=== PATIENT | female | born 1980 | race Caucasian/White ===

== ENCOUNTER 2017-12-13 15:26 | Outpatient (CLI) | payer BC | END 2017-12-13 15:27 | disposition home or self-care (01) | LOC: BICMAMMO 15:26 | PROVIDERS: ATTEND Family Medicine | DX: Z12.31 Encounter for screening mammogram for malignant neoplasm of breast (principal); Z80.3 Family history of malignant neoplasm of breast | CPT/HCPCS: 77063; 77067 ==

== ENCOUNTER 2018-02-13 15:18 | Outpatient (CLI) | payer BC | END 2018-02-13 15:19 | disposition home or self-care (01) | LOC: BICMRI 15:18 | PROVIDERS: ATTEND Internal Medicine Rheumatology | DX: M75.82 Other shoulder lesions, left shoulder (principal); R93.7 Abnormal findings on diagnostic imaging of other parts of musculoskeletal system ==

== ENCOUNTER 2018-08-19 16:21 | Outpatient (CLI) | payer BC | END 2018-08-19 16:22 | disposition home or self-care (01) | LOC: CTENTCT 16:21 | PROVIDERS: ATTEND Otolaryngology Plastic Surgery within the Head & Neck | DX: J32.9 Chronic sinusitis, unspecified (principal) | CPT/HCPCS: 70486 ==

== ENCOUNTER 2018-10-15 14:57 | Outpatient (CLI) | payer BC ==
--- NOTE | 2018-10-15 15:21 | RAD ---
EXAM: Two views chest PROVIDED CLINICAL HISTORY: Fever. Respiratory infection for 2 weeks. COMPARISON: 01/03/2016 FINDINGS: Cardiac silhouette and pulmonary vasculature are within normal limits. The lungs are clear. There is mild elevation of the right hemidiaphragm. Chest is stable from prior exam. IMPRESSION: No acute cardiopulmonary process.
== END 2018-10-15 14:58 | disposition home or self-care (01) ==
LOC: BICRAD 14:57
PROVIDERS: ATTEND Family Medicine
DX: R50.9 Fever, unspecified (principal)
CPT/HCPCS: 36415; 71046; 80048; 81001; 85025; 86140

== ENCOUNTER 2019-05-08 15:08 | Outpatient (CLI) | payer BC ==
--- NOTE | 2019-05-11 07:26 | CT ---
CT Sinuses WO Con INDICATION: Chronic maxillary sinusitis COMPARISON: CT of the maxillofacial structures without contrast from [facility] and dated August 19, 2018. FINDINGS: Maxillary sinuses: Clear Frontal sinus: Clear Sphenoid sinus: Clear Ethmoid sinus: Clear Mastoid air cells: Clear Nasal Septum: Unremarkable Incidental findings: None of significance. IMPRESSION: No acute sinus disease.
== END 2019-05-08 15:09 | disposition home or self-care (01) ==
LOC: BICCT 15:08
PROVIDERS: ATTEND Family Medicine
DX: J32.0 Chronic maxillary sinusitis (principal)

== ENCOUNTER 2019-09-16 15:48 | Outpatient (CLI) | payer BC ==
--- NOTE | 2019-09-16 16:40 | RAD ---
RADIOGRAPH CHEST 2 VIEWS: 09/16/19 HISTORY: 38-year-old female with persistent cough. FINDINGS: The lungs are clear. The cardiomediastinal silhouette and hilar shadows are normal. There is no ple ural effusion. The osseous structures appear normal. There is no pneumothorax. IMPRESSION: Normal. jn [] POS: JIN
== END 2019-09-16 15:49 | disposition home or self-care (01) ==
LOC: BICRAD 15:48
PROVIDERS: ATTEND Family Medicine
DX: R05 Cough (principal)
CPT/HCPCS: 71046

== ENCOUNTER 2020-06-28 09:05 | Outpatient (CLI) | payer BC ==
--- NOTE | 2020-06-28 11:53 | ULT ---
RIGHT BREAST ULTRASOUND LIMITED: Date: 06/28/2020 HISTORY: Exam is performed to follow-up prior outside examination with mammograms dated 06/14/2020. FINDINGS: There is a 0.9 x 0.7 x 1.5 cm diameter circumscribed hypoechoic mass in the 10 o'clock position of th e right breast, 1.0 cm from the nipple, corresponding to the area of mammographic concern. This has a n appearance that is strongly suggestive of a benign fibroadenoma. After discussion of this with the patient, she requested that this be biopsied rather than proceeding to 6 month follow-up short-term surveillance. IMPRESSION: BI-RADS Category 4 - Suspicious finding. Ultrasound-guided biopsy is recommended and the patient will be scheduled for that today. Findings were discussed with the patient, who wants the biopsy rather than proceeding to 6 month shor t-term surveillance. Findings were discussed with Dr. Matthews's office in this regard. POS: OFF
--- NOTE | 2020-06-28 13:37 | ULT ---
EXAM: Ultrasound-guided right breast biopsy PROVIDED CLINICAL HISTORY: Right breast mass COMPARISON: Right breast ultrasound 06/28/2020 FINDINGS: Limited sonographic interrogation was performed of the right breast, with localization of the previou sly described 10:00 right breast mass. Informed consent was obtained from the patient. The skin overlying this region was prepped and draped in the usual sterile manner and the soft tissues anesthe tized with 1% buffered lidocaine. A small skin incision was made. Continuous ultrasound guidance was utilized to obtain 4 core samples of the mass. Subsequently, continuous ultrasound guidance was u tilized to place a biopsy site marker. Leoma were withdrawn and hemostasis achieved. No immediate complications. IMPRESSION: Technically successful right breast biopsy. Please correlate with histology results to follow.
== END 2020-06-28 09:06 | disposition home or self-care (01) ==
LOC: BICULT 09:05
PROVIDERS: ATTEND Obstetrics & Gynecology
DX: N64.89 Other specified disorders of breast (principal); D24.1 Benign neoplasm of right breast
CPT/HCPCS: 19083; 88305

== ENCOUNTER 2022-02-16 08:55 | Outpatient (CLI) | payer BC | END 2022-02-16 08:56 | disposition home or self-care (01) | LOC: MRI 08:55 | PROVIDERS: ATTEND Orthopaedic Surgery | DX: M75.42 Impingement syndrome of left shoulder (principal); M75.52 Bursitis of left shoulder; M75.102 Unspecified rotator cuff tear or rupture of left shoulder, not specified as traumatic ==

== ENCOUNTER 2023-01-10 12:13 | Outpatient (CLI) | payer BC | END 2023-01-10 12:14 | disposition home or self-care (01) | LOC: BICULT 12:13 | PROVIDERS: ATTEND Physician Assistant Medical | DX: R10.13 Epigastric pain (principal); R10.11 Right upper quadrant pain; R10.9 Unspecified abdominal pain; K21.9 Gastro-esophageal reflux disease without esophagitis; K59.09 Other constipation; K76.0 Fatty (change of) liver, not elsewhere classified | CPT/HCPCS: 76705 ==

== ENCOUNTER 2023-12-12 08:24 | Outpatient (CLI) | payer BC | END 2023-12-12 08:25 | disposition home or self-care (01) | LOC: BICMRI 08:24 | PROVIDERS: ATTEND Psychiatry & Neurology Neurology | DX: G20.C Parkinsonism, unspecified (principal) | CPT/HCPCS: 70551 ==